=== PATIENT | male | born 1945 | race Caucasian/White ===

== ENCOUNTER 2018-04-13 09:03 | Day surgery (SDC) | payer MEDICARE ==
[2018-04-13] VITALS (11 sets, daily range): BP systolic 101–168; BP diastolic 49–91
[~2018-04-13] VITALS: Ht 172.7 cm; Wt 120.0 kg
[2018-04-13] MEDS ORDERED: LORazepam 0.5 MG tablet PO PRN (09:55)
[2018-04-13] MEDS ORDERED: diphenhydrAMINE 25mg capsule PO PRN (09:55)
[2018-04-13] MEDS ORDERED: normal saline 1000ml 1,000 ML IV SCH (09:55)
[2018-04-13] MEDS ORDERED: nitroGLYCERIN 0.4mg SUBLingual tab SL PRN (09:55)
[2018-04-13 10:06] LABS: BASOPHILS % (AUTO) 0.5 % (0-1); EOSINOPHILS # (AUTO) 0.1 X10'3 (0-0.9); EOSINOPHILS % (AUTO) 0.9 % (0-6); HEMATOCRIT 45.3 % (42.0-52.0); HEMOGLOBIN 15.4 g/dl (14.0-17.9); LYMPHOCYTES # (AUTO) 1.3 X10'3 (1.1-4.8); LYMPHOCYTES % (AUTO) 16.6 % (21-51); MEAN CORPUSCULAR HEMOGLOBIN 31.8 PG (27.0-31.0); MEAN CORPUSCULAR HGB CONC 34.1 % (33.0-36.5); MEAN CORPUSCULAR VOLUME 93.3 FL (78-98); MEAN PLATELET VOLUME 9.8 FL (7.4-10.4); MONOCYTES # (AUTO) 0.8 X10'3 (0-0.9); MONOCYTES % (AUTO) 9.7 % (2-12); NEUTROPHILS # (AUTO) 5.9 X10'3 (1.8-7.7); NEUTROPHILS % (AUTO) 72.3 % (42-75); PLATELET COUNT 228 X10'3 (140-440); RED BLOOD COUNT 4.85 X10'6 (4.70-6.10); RED CELL DISTRIBUTION WIDTH 14.1 % (11.5-14.5); WHITE BLOOD COUNT 8.1 X10'3 (4.5-11.0)
[2018-04-13 10:19] LABS: PARTIAL THROMBOPLASTIN TIME 27 SECONDS (22-32); PROTHROMBIN TIME 10.3 SECONDS (9.0-12.0)
[2018-04-13 10:22] LABS: ALBUMIN 4.3 G/DL (3.4-5.0); ANION GAP 11 (8-16); BLOOD UREA NITROGEN 18 MG/DL (7-18); BUN/CREATININE RATIO 13.2 (5.4-32.0); CALCIUM 9.4 MG/DL (8.5-10.1); CHLORIDE 105 MMOL/L (99-107); CREATININE 1.36 MG/DL (0.60-1.10); GLUCOSE 101 MG/DL (70-104); POTASSIUM 3.5 MMOL/L (3.5-5.1); SODIUM 142 MMOL/L (135-145); eGFR 51 ML/MIN
[2018-04-13] MEDS ORDERED: LOSA25TA96 PO (10:50)
[2018-04-13] MEDS ORDERED: SIMV20TA5 PO (10:50)
[2018-04-13] MEDS ORDERED: CITA-278 PO (10:50)
[2018-04-13] MEDS ORDERED: ALLO100T PO (10:50)
[2018-04-13] MEDS ORDERED: iohexol 350MG/ML 100ml bottle IV ONE (11:34)
[2018-04-13] MEDS ORDERED: LIDOcaine 1% (10mg/ml)w/preservative injection 20ml MDV ONE (11:34)
[2018-04-13] MEDS ORDERED: iohexol 350 MG/ML 50ML vial IV ONE (11:34)
[2018-04-13] MEDS ORDERED: midazolam 2 mg/2 ml injection ONE (11:55)
[2018-04-13] MEDS ORDERED: fentaNYL/PF 50MCG/1 ML 2ML syringe ONE (11:56)
[2018-04-13] MEDS ORDERED: proCHLORperazine 10 MG/2 ml inj ONE (12:06)
[2018-04-13] MEDS ORDERED: HYDROcodone/acetaminophen 5mg/325mg tablet PO PRN (13:05)
[2018-04-13] MEDS ORDERED: proCHLORperazine 10 MG/2 ml inj IV PRN (13:05)
[2018-04-13] MEDS ORDERED: ondansetron/PF 4mg/2ml inj IV PRN (13:05)
[2018-04-13] MEDS ORDERED: HYDROcodone/acetaminophen 10/325mg tab PO PRN (13:05)
[2018-04-13] MEDS ORDERED: OXAZEpam 15mg capsule PO PRN (13:05)
== END 2018-04-13 19:00 | disposition home or self-care (01) ==
LOC: SSTAY O 09:03
PROVIDERS: ATTEND Internal Medicine Cardiovascular Disease
DX: I25.10 Atherosclerotic heart disease of native coronary artery without angina pectoris (principal); I10 Essential (primary) hypertension; M10.9 Gout, unspecified; E78.5 Hyperlipidemia, unspecified; E66.9 Obesity, unspecified; F10.10 Alcohol abuse, uncomplicated; F41.8 Other specified anxiety disorders; Z68.41 Body mass index [BMI] 40.0-44.9, adult; Z72.89 Other problems related to lifestyle; Z90.49 Acquired absence of other specified parts of digestive tract; Z90.89 Acquired absence of other organs; Z79.899 Other long term (current) drug therapy
CPT/HCPCS: 36415; 71046; 80048; 85025; 85610; 85730; 93458; 99152; A6257; C1760; J0780; J1644; J2001; J2250; J3010; J7030; Q0163; Q9967; 99153; A4620; C1769

== ENCOUNTER 2018-04-27 08:48 | Inpatient (IN) | payer MEDICARE ==
[2018-04-26 14:20] LABS: ABG BASE EXCESS -3.5 mmol/L (-2.0-3.0); ABG HCO3 19.7 mmol/L (22.0-26.0); ABG OXYGEN SATURATION 96.8 % (95-98); ABG PCO2 (T) 31.2 mmHg (35.0-48.0); ABG PH (T) 7.419 (7.350-7.450); ABG PO2 (T) 91.5 mmHg (83-108); ALLEN'S TEST Positive; FCOHb 0.9 % (0.5-1.5); FMetHb 0.1 % (0.3-1.12); FO2Hb 95.8 % (94-100); TOTAL HEMOGLOBIN 15.2 G/dl (14.0-18.0)
[2018-04-26 15:03] LABS: BASOPHILS % (AUTO) 0.6 % (0-1); EOSINOPHILS # (AUTO) 0.2 X10'3 (0-0.9); EOSINOPHILS % (AUTO) 2.2 % (0-6); LYMPHOCYTES # (AUTO) 1.4 X10'3 (1.1-4.8); LYMPHOCYTES % (AUTO) 17.7 % (21-51); MEAN CORPUSCULAR HEMOGLOBIN 31.1 PG (27.0-31.0); MEAN CORPUSCULAR HGB CONC 33.4 g/dL (33.0-36.5); MEAN CORPUSCULAR VOLUME 93.1 FL (78-98); MEAN PLATELET VOLUME 9.7 FL (7.4-10.4); MONOCYTES # (AUTO) 0.7 X10'3 (0-0.9); MONOCYTES % (AUTO) 8.3 % (2-12); NEUTROPHILS # (AUTO) 5.6 X10'3 (1.8-7.7); NEUTROPHILS % (AUTO) 71.2 % (42-75); PRE OP HEMATOCRIT 43.7 % (42.0-52.0); PRE OP HEMOGLOBIN 14.6 g/dL (14.0-17.9); PRE OP PLATELET COUNT 247 X10'3 (140-440); RED CELL DISTRIBUTION WIDTH 13.9 % (11.5-14.5)
[2018-04-26 15:19] LABS: CLARITY,URINE CLEAR (Clear); COLOR,URINE YELLOW (Yellow); GLUCOSE, URINE NEGATIVE (Neg); KETONES,URINE NEGATIVE (Neg); LEUKOCYTE ESTERASE ,URINE NEGATIVE (Neg); NITRITES, URINE NEGATIVE (Neg); OCCULT BLOOD,URINE NEGATIVE (Neg); PH,URINE 5.5 (4.8-8.0); PROTEIN,URINE NEGATIVE (Neg); UA COLLECTION TYPE VOIDED; UROBILINOGEN,URINE 0.2 E.U/dL (0.2-1.0)
[2018-04-26 15:20] LABS: ALBUMIN 4.3 G/DL (3.4-5.0); ALBUMIN/GLOBULIN RATIO 1.2 (1.1-1.5); ALKALINE PHOSPHATASE 60 IU/L (46-116); BLOOD UREA NITROGEN 19 MG/DL (7-18); BUN/CREATININE RATIO 15.7 (5.4-32.0); CALCIUM 9.5 MG/DL (8.5-10.1); CHLORIDE 103 MMOL/L (99-107); CREATININE 1.21 MG/DL (0.60-1.10); PRE OP ALT 34 U/L (30-65); PRE OP ANION GAP 10 (8-16); PRE OP AST 24 U/L (10-37); PRE OP BILIRUB, TOTAL 0.6 MG/DL (0.0-1.0); PRE OP GLUCOSE 96 MG/DL (70-104); PRE OP POTASSIUM 3.5 MMOL/L (3.4-5.1); PRE OP SODIUM 141 MMOL/L (135-145); TOTAL CARBON DIOXIDE 27.8 MMOL/L (24-32); TOTAL PROTEIN 7.8 G/DL (6.4-8.2); eGFR 59 ML/MIN
[~2018-04-27] VITALS: Ht 172.7 cm; Wt 127.6 kg
[2018-04-27] VITALS (13 sets, daily range): BP systolic 107–159; BP diastolic 48–76
[2018-04-27] MEDS: mupirocin 2% nasal ointment 1gm UD NS SCH ×3 (08:00→20:16)
[~2018-04-27 08:48] MED LIST: ALLO100T PO; CITA-278 PO; LORazepam 2 mg/ml vial IV PRN; LOSA1TAB36 PO; SIMV20TA5 PO; ceFAZolin inj. 2,000 MG in dextrose 5%-water 50ml 50 ML IV ONE; dextrose 50%-water 50ml dispensing syringe IV PRN; famotidine 20mg tablet PO ONE; insulin Lispro (HumaLOG) vial - multi-dose SQ PRN; metoprolol tartrate 12.5mg (1/2 tablet) PO ONE; ringers solution, lacted 1,000 ML IV SCH; vancomycin inj 1,500 MG in normal saline 300ml IV soln IV ONE
[2018-04-27] MEDS ORDERED: ceFAZolin inj. 3,000 MG in normal saline 100ml IV soln 100 ML IV ONE (09:36)
[2018-04-27] MEDS ORDERED: heparin 10,000 units/1 ML INJ ONE ×2 (12:00→14:00)
[2018-04-27] MEDS ORDERED: potassium Cl 2 mEq/ml inj IV ONE (12:00)
[2018-04-27] MEDS ORDERED: MAGNESIUM SULFATE 4 MEQ/ML (5gm/10ml) injection ONE (12:00)
[2018-04-27] MEDS ORDERED: calcium chloride 100 MG/1 ML inj IV ONE (12:00)
[2018-04-27] MEDS ORDERED: phenylephrine 10mg/ml inj. ONE ×2 (12:00→17:01)
[2018-04-27] MEDS ORDERED: albumin (human) 25% 100 ML IV solution IV ONE (12:00)
[2018-04-27] MEDS ORDERED: LIDOcaine 2% (20 mg/ml) 5ml cardiac syringe ONE (12:00)
[2018-04-27] MEDS ORDERED: aminocaproic acid 250 MG/1 ML inj. ONE (12:00)
[2018-04-27] MEDS ORDERED: sodium bicarbonate (8.4%) 1 mEq/ml syringe ONE (12:00)
[2018-04-27] MEDS ORDERED: heparin 1,000 units/ml 10ml inj ONE (12:00)
[2018-04-27] MEDS ORDERED: MIDAZolam 1mg/ml 10ml vial ONE (12:18)
[2018-04-27] MEDS ORDERED: SUFENTANIL CITRATE 50 MCG/ML 2ml ampule IV ONE ×2 (12:19→13:59)
[2018-04-27] MEDS ORDERED: DOPamine/D5W 400mg/250ml bag IV ONE (12:21)
[2018-04-27] MEDS ORDERED: isoflurane 100ml inhalation liquid IH ONE (12:21)
[2018-04-27] MEDS ORDERED: nitroGLYCERIN in D5W 50mg/250ml (Tridil) infusion IV ONE (12:21)
[2018-04-27] MEDS ORDERED: glycopyrrolate 0.2mg/ml inj ONE (12:21)
[2018-04-27 13:11] LABS: ABG HCO3 23.2 mmol/L (22.0-26.0); ABG OXYGEN SATURATION 99.3 % (95-98); ABG PCO2 37.3 mmHg (35.0-45.0); ABG PH 7.412 (7.350-7.450); ABG PO2 408.9 mmHg (60.0-100.0); CL (ABG) 108 mmol/L (99-107); FCOHb 0.5 % (0.5-1.5); FMetHb 0.3 % (0.3-1.12); FO2Hb 98.5 % (94-100); GLUCOSE (ABG) 109 mg/dl (70-105); IONIZED CA (ABG) 1.16 mmol/L (1.03-1.32); K (ABG) 3.5 mmol/L (3.3-5.1); NA (ABG) 138 mmol/L (135-145); TOTAL HEMOGLOBIN 13.3 G/dl (14.0-18.0)
[2018-04-27 13:31] LABS: ACT @ 1.70 U 316 SEC (193-297); ACT @ 2.84 U 435 SEC (260-420); BASELINE ACT 154 SEC (101-148)
[2018-04-27] MEDS ORDERED: papaverine 30 mg/ml 2ml inj. ONE (14:00)
[2018-04-27 14:31] LABS: ABG BASE EXCESS -2.9 mmol/L (-2.0-3.0); ABG HCO3 21.2 mmol/L (22.0-26.0); ABG OXYGEN SATURATION 98.9 % (95-98); ABG PH 7.412 (7.350-7.450); ABG PO2 344.5 mmHg (60.0-100.0); CL (ABG) 105 mmol/L (99-107); FCOHb 0.1 % (0.5-1.5); FMetHb 0.3 % (0.3-1.12); FO2Hb 98.5 % (94-100); GLUCOSE (ABG) 118 mg/dl (70-105); IONIZED CA (ABG) 1.03 mmol/L (1.03-1.32); K (ABG) 4.8 mmol/L (3.3-5.1); NA (ABG) 133 mmol/L (135-145); TOTAL HEMOGLOBIN 10.2 G/dl (14.0-18.0)
[2018-04-27] MEDS ORDERED: ipratropium/albuterol 3ml nebule IH PRN (14:40)
[2018-04-27 14:51] LABS: ABG HCO3 VENOUS 26.5 mmol/L; ABG PCO2 VENOUS 45.9 mmHg; ABG PO2 VENOUS 49.1 mmHg; CL (ABG) 104 mmol/L (99-107); FCOHb VENOUS 0.4 %; FHHb VENOUS 15.1 %; FMetHb VENOUS 0.3 %; FO2Hb VENOUS 84.2 %; GLUCOSE (ABG) 121 mg/dl (70-105); IONIZED CA (ABG) 1.04 mmol/L (1.03-1.32); K (ABG) 4.6 mmol/L (3.3-5.1); NA (ABG) 137 mmol/L (135-145); TOTAL HEMOGLOBIN 10.3 G/dl (14.0-18.0)
[2018-04-27 15:16] LABS: ABG BASE EXCESS 2.1 mmol/L (-2.0-3.0); ABG HCO3 26.8 mmol/L (22.0-26.0); ABG OXYGEN SATURATION 98.9 % (95-98); ABG PCO2 42.7 mmHg (35.0-45.0); ABG PH 7.416 (7.350-7.450); ABG PO2 366.2 mmHg (60.0-100.0); CL (ABG) 103 mmol/L (99-107); FCOHb 0.3 % (0.5-1.5); FMetHb 0.3 % (0.3-1.12); FO2Hb 98.3 % (94-100); GLUCOSE (ABG) 113 mg/dl (70-105); IONIZED CA (ABG) 1.32 mmol/L (1.03-1.32); K (ABG) 4.5 mmol/L (3.3-5.1); NA (ABG) 133 mmol/L (135-145); TOTAL HEMOGLOBIN 9.5 G/dl (14.0-18.0)
[2018-04-27 15:45] LABS: ABG BASE EXCESS VENOUS 1.1 mmol/L; ABG PO2 VENOUS 45.4 mmHg; CL (ABG) 103 mmol/L (99-107); FCOHb VENOUS 0.4 %; FHHb VENOUS 18.4 %; FMetHb VENOUS 0.4 %; FO2Hb VENOUS 80.8 %; GLUCOSE (ABG) 123 mg/dl (70-105); IONIZED CA (ABG) 1.19 mmol/L (1.03-1.32); K (ABG) 4.5 mmol/L (3.3-5.1); NA (ABG) 135 mmol/L (135-145); TOTAL HEMOGLOBIN 10.5 G/dl (14.0-18.0)
[2018-04-27] MEDS ORDERED: nitroGLYCERIN-Tridil 50MG/D5W 250 ML IV PRN (16:29)
[2018-04-27] MEDS ORDERED: sodium chloride 0.45% 1,000 ML IV SCH (16:29)
[2018-04-27] MEDS ORDERED: DOPamine 400mg/D5W 250ml 250 ML IV PRN (16:29)
[2018-04-27] MEDS ORDERED: niCARDipine-NS 40mg/200ml IVPB 200 ML IV PRN (16:29)
[2018-04-27] MEDS ORDERED: Neutra Phos packet PO PRN (16:30)
[2018-04-27] MEDS ORDERED: normal saline 250ml IV soln 250 ML IV PRN (16:30)
[2018-04-27] MEDS ORDERED: dextrose 50%-water 50ml dispensing syringe IV PRN (16:30)
[2018-04-27] MEDS ORDERED: sodium phosphate inj. 30 MMOL in dextrose 5%-water 250 ML IV PRN (16:30)
[2018-04-27] MEDS ORDERED: magnesium hydroxide 30ml (MOM) UD suspension PO PRN (16:30)
[2018-04-27] MEDS ORDERED: acetaminophen 325mg tablet PO PRN (16:30)
[2018-04-27] MEDS ORDERED: metoclopramide 5 mg/ml inj IV PRN (16:30)
[2018-04-27] MEDS ORDERED: albumin (Human) 5% 250ml 250 ML IV PRN (16:30)
[2018-04-27] MEDS ORDERED: magnesium 4gm in 100ml NS 100 ML IV PRN (16:30)
[2018-04-27] MEDS ORDERED: potassium Cl 20mEq/100mL bag 100 ML IV PRN (16:30)
[2018-04-27] MEDS ORDERED: magnesium 2GM in 50ml NS 50 ML IV PRN (16:30)
[2018-04-27] MEDS ORDERED: sodium phosphate inj. 15 MMOL in dextrose 5%-water 150 ML IV PRN (16:30)
[2018-04-27] MEDS ORDERED: ondansetron/PF 4mg/2ml inj IV PRN (16:30)
[2018-04-27] MEDS ORDERED: insulin regular, human inj. 100 UNITS in normal saline 100ml IV soln 100 ML IV SCH ×2 (16:30)
[2018-04-27] MEDS ORDERED: HYDROcodone/acetaminophen 10/325mg tab PO PRN (16:30)
[2018-04-27] MEDS ORDERED: morphine 4 MG/ML inj SYRINge IV PRN (16:30)
[2018-04-27] MEDS ORDERED: pantoprazole 40 MG vial IV ONE (16:30)
[2018-04-27] MEDS ORDERED: niCARDipine-NS 40mg/200ml IVPB 200 ML IV ONE (16:43)
--- NOTE | 2018-04-27 16:45 | NUR ---
Received to room 2012, accompanied by MDs and surgical crew. Placed on ventilator, to clinical research monitor, arterial line and PA line pressure monitored. Chest tubes to suction at 20 cm. Burnham cath to gravity drainage. Dressings are dry and intact. See assessment record. All vasoactive drugs are infusing via central line.
[2018-04-27] MEDS ORDERED: rocuronium 10mg/ml inj IV ONE (17:01)
[2018-04-27] MEDS ORDERED: propofol inj 20 ML IV ONE (17:01)
[2018-04-27] MEDS ORDERED: LIDOcaine 2% (20mg/ml) 5ml vial ONE (17:01)
[2018-04-27] MEDS ORDERED: etomidate 2mg/ml inj. ONE (17:01)
[2018-04-27 17:06] LABS: ABG BASE EXCESS -1.8 mmol/L (-2.0-3.0); ABG HCO3 24.4 mmol/L (22.0-26.0); ABG OXYGEN SATURATION 97.8 % (95-98); ABG PCO2 (T) 44.4 mmHg (35.0-48.0); ABG PH (T) 7.352 (7.350-7.450); FCOHb 0.5 % (0.5-1.5); FMetHb 0.4 % (0.3-1.12); FO2Hb 96.9 % (94-100); MINUTE VOLUME 8 L/min; PATIENT TEMPERATURE 35.9; PEEP 5 cm H2O; RESPIRATORY RATE 12 b/min; RESPIRATORY RATE (OBSERVED) 12 b/min; TIDAL VOLUME 650 mL; TOTAL HEMOGLOBIN 13.6 G/dl (14.0-18.0)
[2018-04-27 17:13] LABS: BASOPHILS % (AUTO) 0.3 % (0-1); EOSINOPHILS # (AUTO) 0.1 X10'3 (0-0.9); EOSINOPHILS % (AUTO) 1.1 % (0-6); HEMATOCRIT 37.6 % (42.0-52.0); HEMOGLOBIN 12.8 g/dl (14.0-17.9); LYMPHOCYTES # (AUTO) 0.7 X10'3 (1.1-4.8); LYMPHOCYTES % (AUTO) 5.6 % (21-51); MEAN CORPUSCULAR HEMOGLOBIN 31.7 PG (27.0-31.0); MEAN CORPUSCULAR VOLUME 93.2 FL (78-98); MEAN PLATELET VOLUME 9.3 FL (7.4-10.4); MONOCYTES # (AUTO) 0.6 X10'3 (0-0.9); MONOCYTES % (AUTO) 4.9 % (2-12); NEUTROPHILS # (AUTO) 10.7 X10'3 (1.8-7.7); NEUTROPHILS % (AUTO) 88.1 % (42-75); PLATELET COUNT 183 X10'3 (140-440); RED BLOOD COUNT 4.03 X10'6 (4.70-6.10); RED CELL DISTRIBUTION WIDTH 13.7 % (11.5-14.5); WHITE BLOOD COUNT 12.2 X10'3 (4.5-11.0)
[2018-04-27 17:30] LABS: ALANINE AMINOTRANSFERASE 27 U/L (12-78); ALBUMIN 3.8 G/DL (3.4-5.0); ALBUMIN/GLOBULIN RATIO 1.6 (1.1-1.5); ALKALINE PHOSPHATASE 43 IU/L (46-116); ANION GAP 9 (8-16); ASPARTATE AMINO TRANSFERASE 33 U/L (10-37); BILIRUBIN,TOTAL 1.2 MG/DL (0.1-1.0); BLOOD UREA NITROGEN 16 MG/DL (7-18); BUN/CREATININE RATIO 13.4 (5.4-32.0); CALCIUM 9.1 MG/DL (8.5-10.1); CHLORIDE 105 MMOL/L (99-107); CREATININE 1.19 MG/DL (0.60-1.10); GLUCOSE 147 MG/DL (70-104); MAGNESIUM 3.1 MG/DL (1.5-2.4); PHOSPHORUS 2.6 MG/DL (2.3-4.5); POTASSIUM 4.2 MMOL/L (3.5-5.1); SODIUM 141 MMOL/L (135-145); TOTAL CARBON DIOXIDE 27.3 MMOL/L (24-32); TOTAL PROTEIN 6.2 G/DL (6.4-8.2); eGFR 60 ML/MIN
[2018-04-27] MEDS: insulin regular, human inj. 100 UNITS in normal saline 100ml IV IV SCH ×2 (17:37)
[2018-04-27 17:55] LABS: INR 1.1 INR; PARTIAL THROMBOPLASTIN TIME 29 SECONDS (22-32); PROTHROMBIN TIME 11.5 SECONDS (9.0-12.0)
[2018-04-27] MEDS ORDERED: insulin Lispro (HumaLOG) vial - multi-dose SQ SCH (18:00)
[2018-04-27] MEDS: morphine 4 MG/ML inj SYRINge IV PRN ×2 (18:02→20:20)
--- NOTE | 2018-04-27 18:15 | NUR ---
Problems reprioritized. Patient report given, questions answered & plan of care reviewed with oncoming shift.
--- NOTE | 2018-04-27 18:30 | NUR ---
Patient in room CICU 2011. I have received report from Micaela BOWENS and had the opportunity to ask questions and assume patient care.
[2018-04-27] MEDS: niCARDipine-NS 40mg/200ml IVPB 200 ML IV SCH (18:45)
[2018-04-27] MEDS: potassium Cl 20mEq/100mL bag 100 ML IV PRN ×2 (18:53→23:51)
[2018-04-27] MEDS ORDERED: mupirocin 2% ointment 22GM NS SCH (20:00)
[2018-04-27] MEDS: docusate sod 100mg capsule PO SCH (20:00)
[2018-04-27] MEDS: vancomycin/NS 1 GM ADD-VANTAGE 250 ML IV SCH (20:17)
[2018-04-27 22:40] LABS: BASOPHILS % (AUTO) 0 % (0-1); EOSINOPHILS # (AUTO) 0.2 X10'3 (0-0.9); EOSINOPHILS % (AUTO) 1.4 % (0-6); HEMATOCRIT 36.9 % (42.0-52.0); HEMOGLOBIN 12.7 g/dl (14.0-17.9); LYMPHOCYTES # (AUTO) 0.5 X10'3 (1.1-4.8); LYMPHOCYTES % (AUTO) 3.3 % (21-51); MEAN CORPUSCULAR HEMOGLOBIN 32.2 PG (27.0-31.0); MEAN CORPUSCULAR HGB CONC 34.3 g/dL (33.0-36.5); MEAN CORPUSCULAR VOLUME 93.8 FL (78-98); MEAN PLATELET VOLUME 9.3 FL (7.4-10.4); MONOCYTES # (AUTO) 0.7 X10'3 (0-0.9); MONOCYTES % (AUTO) 4.5 % (2-12); NEUTROPHILS # (AUTO) 13.9 X10'3 (1.8-7.7); NEUTROPHILS % (AUTO) 90.8 % (42-75); PLATELET COUNT 174 X10'3 (140-440); RED BLOOD COUNT 3.93 X10'6 (4.70-6.10); RED CELL DISTRIBUTION WIDTH 14.2 % (11.5-14.5); WHITE BLOOD COUNT 15.3 X10'3 (4.5-11.0)
[2018-04-27 22:48] LABS: ALBUMIN 3.7 G/DL (3.4-5.0); ANION GAP 16 (8-16); BLOOD UREA NITROGEN 20 MG/DL (7-18); BUN/CREATININE RATIO 11.3 (5.4-32.0); CALCIUM 8.6 MG/DL (8.5-10.1); CHLORIDE 105 MMOL/L (99-107); CREATININE 1.77 MG/DL (0.60-1.10); GLUCOSE 168 MG/DL (70-104); MAGNESIUM 2.6 MG/DL (1.5-2.4); PHOSPHORUS 2.7 MG/DL (2.3-4.5); POTASSIUM 3.2 MMOL/L (3.5-5.1); SODIUM 143 MMOL/L (135-145); TOTAL CARBON DIOXIDE 21.8 MMOL/L (24-32); eGFR 38 ML/MIN
[2018-04-27] MEDS: ceFAZolin 1GM/D5W- ADD-VANTAGE 50 ML IV SCH (23:51)
[2018-04-28] VITALS (24 sets, daily range): BP systolic 100–144; BP diastolic 42–66
[2018-04-28 00:36] LABS: ABG HCO3 18.8 mmol/L (22.0-26.0); ABG OXYGEN SATURATION 96.3 % (95-98); ABG PCO2 (T) 34.8 mmHg (35.0-48.0); ABG PO2 (T) 92.2 mmHg (83-108); FCOHb 0.3 % (0.5-1.5); FMetHb 0.3 % (0.3-1.12); FO2Hb 95.7 % (94-100); PATIENT TEMPERATURE 36.8; PEEP 5 cm H2O; RESPIRATORY RATE (OBSERVED) 15 b/min
--- NOTE | 2018-04-28 00:51 | NUR ---
Extubated 0045 to 4L NC.
[2018-04-28] MEDS: niCARDipine-NS 40mg/200ml IVPB 200 ML IV SCH ×3 (00:53→18:45)
[2018-04-28] MEDS: potassium Cl 20mEq/100mL bag 100 ML IV PRN ×3 (00:53→02:56)
[2018-04-28] MEDS: HYDROcodone/acetaminophen 10/325mg tab PO PRN ×4 (04:42→16:43)
[2018-04-28 04:45] LABS: BASOPHILS % (AUTO) 0 % (0-1); EOSINOPHILS % (AUTO) 0 % (0-6); HEMATOCRIT 36.3 % (42.0-52.0); HEMOGLOBIN 12.2 g/dl (14.0-17.9); LYMPHOCYTES # (AUTO) 0.5 X10'3 (1.1-4.8); LYMPHOCYTES % (AUTO) 3.3 % (21-51); MEAN CORPUSCULAR HEMOGLOBIN 31.4 PG (27.0-31.0); MEAN CORPUSCULAR HGB CONC 33.6 g/dL (33.0-36.5); MEAN CORPUSCULAR VOLUME 93.3 FL (78-98); MEAN PLATELET VOLUME 9.6 FL (7.4-10.4); MONOCYTES % (AUTO) 6.3 % (2-12); NEUTROPHILS % (AUTO) 90.4 % (42-75); PLATELET COUNT 163 X10'3 (140-440); RED BLOOD COUNT 3.89 X10'6 (4.70-6.10); RED CELL DISTRIBUTION WIDTH 13.9 % (11.5-14.5); WHITE BLOOD COUNT 15.5 X10'3 (4.5-11.0)
[2018-04-28 05:00] LABS: ALANINE AMINOTRANSFERASE 24 U/L (12-78); ALBUMIN 3.5 G/DL (3.4-5.0); ALBUMIN/GLOBULIN RATIO 1.4 (1.1-1.5); ALKALINE PHOSPHATASE 38 IU/L (46-116); ANION GAP 13 (8-16); ASPARTATE AMINO TRANSFERASE 38 U/L (10-37); BILIRUBIN,TOTAL 0.6 MG/DL (0.1-1.0); BLOOD UREA NITROGEN 21 MG/DL (7-18); BUN/CREATININE RATIO 13.4 (5.4-32.0); CHLORIDE 109 MMOL/L (99-107); CREATININE 1.57 MG/DL (0.60-1.10); GLUCOSE 127 MG/DL (70-104); MAGNESIUM 2.6 MG/DL (1.5-2.4); POTASSIUM 4.6 MMOL/L (3.5-5.1); SODIUM 145 MMOL/L (135-145); TOTAL CARBON DIOXIDE 22.7 MMOL/L (24-32); eGFR 44 ML/MIN
[2018-04-28 05:01] LABS: INR 1.1 INR; PARTIAL THROMBOPLASTIN TIME 23 SECONDS (22-32); PROTHROMBIN TIME 10.7 SECONDS (9.0-12.0)
[2018-04-28 05:21] LABS: ACTIVATED CLOTTING TIME 105 SEC (101-148)
--- NOTE | 2018-04-28 06:10 | NUR ---
Problems reprioritized. Patient report given, questions answered & plan of care reviewed with Oncoming shift RN.
[2018-04-28] MEDS: citalopram 20mg tablet PO SCH (08:09)
[2018-04-28] MEDS: aspirin 325mg tablet, delayed-release (Ecotrin) PO SCH (08:09)
[2018-04-28] MEDS: metoprolol tartrate 12.5mg (1/2 tablet) PO SCH ×2 (08:11→20:00)
[2018-04-28] MEDS: atorvastatin 10mg tablet PO SCH (08:11)
[2018-04-28] MEDS: allopurinol 100mg tablet PO SCH (08:11)
[2018-04-28] MEDS: docusate sod 100mg capsule PO SCH ×2 (08:11→20:34)
[2018-04-28] MEDS: mupirocin 2% nasal ointment 1gm UD NS SCH ×2 (08:13→20:34)
[2018-04-28] MEDS: ceFAZolin 1GM/D5W- ADD-VANTAGE 50 ML IV SCH ×2 (08:13→16:43)
[2018-04-28] MEDS: vancomycin/NS 1 GM ADD-VANTAGE 250 ML IV SCH ×2 (08:43→20:34)
[2018-04-28] MEDS: insulin regular, human inj. 100 UNITS in normal saline 100ml IV IV SCH ×2 (14:15)
[2018-04-28] MEDS ORDERED: IBUP-1984 PO (14:29)
[2018-04-28] MEDS ORDERED: glucagon, human recombinant 1mg kit SUBCUT PRN (18:10)
[2018-04-28] MEDS ORDERED: dextrose 50%-water 50ml dispensing syringe IV PRN ×2 (18:10)
[2018-04-28] MEDS ORDERED: MESSAGE TO PHARMACY PO ONE (18:10)
[2018-04-28] MEDS ORDERED: dextrose ORAL solution 15 GM/59 ML bottle PO PRN ×2 (18:10)
--- NOTE | 2018-04-28 18:30 | NUR ---
Patient in room CICU 2011. I have received report from Lul BOWENS and had the opportunity to ask questions and assume patient care.
[2018-04-28] MEDS: lactobacillus rhamnosus 10,000 MMU CELLS/CAPSULE PO SCH (20:34)
[2018-04-28] MEDS: insulin glargine (Lantus) pen - multi-dose SQ SCH (20:46)
[2018-04-28] MEDS: insulin Lispro (HumaLOG) vial - multi-dose SQ SCH (20:47)
[2018-04-29] VITALS (18 sets, daily range): BP systolic 129–163; BP diastolic 61–86
[2018-04-29] MEDS: ceFAZolin 1GM/D5W- ADD-VANTAGE 50 ML IV SCH ×2 (00:54→07:11)
[2018-04-29 02:04] LABS: ALBUMIN 3.5 G/DL (3.4-5.0); ANION GAP 8 (8-16); BLOOD UREA NITROGEN 29 MG/DL (7-18); BUN/CREATININE RATIO 20.7 (5.4-32.0); CALCIUM 8.6 MG/DL (8.5-10.1); CHLORIDE 105 MMOL/L (99-107); GLUCOSE 160 MG/DL (70-104); MAGNESIUM 2.4 MG/DL (1.5-2.4); PHOSPHORUS 3.2 MG/DL (2.3-4.5); POTASSIUM 4.3 MMOL/L (3.5-5.1); SODIUM 139 MMOL/L (135-145); TOTAL CARBON DIOXIDE 26.5 MMOL/L (24-32); eGFR 50 ML/MIN
[2018-04-29 02:11] LABS: BASOPHILS % (AUTO) 0 % (0-1); EOSINOPHILS % (AUTO) 0 % (0-6); HEMATOCRIT 33.9 % (42.0-52.0); HEMOGLOBIN 11.6 g/dl (14.0-17.9); LYMPHOCYTES # (AUTO) 0.6 X10'3 (1.1-4.8); LYMPHOCYTES % (AUTO) 2.8 % (21-51); MEAN CORPUSCULAR HEMOGLOBIN 32.2 PG (27.0-31.0); MEAN CORPUSCULAR HGB CONC 34.3 g/dL (33.0-36.5); MEAN CORPUSCULAR VOLUME 93.9 FL (78-98); MEAN PLATELET VOLUME 10.6 FL (7.4-10.4); MONOCYTES # (AUTO) 1.6 X10'3 (0-0.9); NEUTROPHILS # (AUTO) 20.1 X10'3 (1.8-7.7); NEUTROPHILS % (AUTO) 90.2 % (42-75); PLATELET COUNT 147 X10'3 (140-440); RED BLOOD COUNT 3.61 X10'6 (4.70-6.10); RED CELL DISTRIBUTION WIDTH 14.6 % (11.5-14.5); WHITE BLOOD COUNT 22.3 X10'3 (4.5-11.0)
[2018-04-29] MEDS: niCARDipine-NS 40mg/200ml IVPB 200 ML IV SCH (02:45)
--- NOTE | 2018-04-29 06:27 | NUR ---
Problems reprioritized. Patient report given, questions answered & plan of care reviewed with Lul BOWENS.
[2018-04-29] MEDS: docusate sod 100mg capsule PO SCH ×2 (07:11→20:39)
[2018-04-29] MEDS: lactobacillus rhamnosus 10,000 MMU CELLS/CAPSULE PO SCH ×2 (07:11→20:39)
[2018-04-29] MEDS: pantoprazole 40mg Tablet.DR PO SCH (07:11)
[2018-04-29] MEDS: aspirin 325mg tablet, delayed-release (Ecotrin) PO SCH (07:11)
[2018-04-29] MEDS: mupirocin 2% nasal ointment 1gm UD NS SCH (07:11)
[2018-04-29] MEDS: citalopram 20mg tablet PO SCH (07:11)
[2018-04-29] MEDS: allopurinol 100mg tablet PO SCH (07:11)
[2018-04-29] MEDS: atorvastatin 10mg tablet PO SCH (07:11)
[2018-04-29] MEDS: insulin Lispro (HumaLOG) vial - multi-dose SQ SCH ×2 (09:24→19:01)
[2018-04-29] MEDS: potassium Cl 20mEq/100mL bag 100 ML IV PRN (10:03)
[2018-04-29] MEDS ORDERED: magnesium 2GM in 50ml NS 50 ML IV PRN (10:40)
[2018-04-29] MEDS ORDERED: magnesium 4gm in 100ml NS 100 ML IV PRN (10:40)
[2018-04-29] MEDS ORDERED: potassium Cl 40MEQ/NS 500ml 500 ML IV PRN ×2 (10:40)
[2018-04-29] MEDS ORDERED: potassium Cl 20 mEq SR tablet PO PRN ×2 (10:40)
[2018-04-29] MEDS ORDERED: magnesium Cl slow-release 64mg tablet PO PRN (10:40)
--- NOTE | 2018-04-29 11:00 | NUR ---
Dr Smiley and Liborio at bedside. chest tubes removed; patient tolerated well. orders received
--- NOTE | 2018-04-29 11:30 | NUR ---
Central line and khan catheter removed per protocol. patient tolerated well
[2018-04-29] MEDS: losartan 50mg tablet PO SCH (12:49)
[2018-04-29] MEDS: HYDROcodone/acetaminophen 10/325mg tab PO PRN ×2 (12:49→17:56)
--- NOTE | 2018-04-29 12:56 | NUR ---
Blood sugar checked; 106. Rejected on the glucometer on accident
--- NOTE | 2018-04-29 15:41 | NUR ---
report called to [facility]
--- NOTE | 2018-04-29 15:45 | NUR ---
Patient in room MED 308. I have received report from KWAN COTTRELL CICU and had the opportunity to ask questions and assume patient care.
--- NOTE | 2018-04-29 16:00 | NUR ---
PATIENT ARRIVED TO [facility] VIA WC IN STABLE CONDITION. KWAN COTTRELL ACCOMPANIED PATIENT. ALL BELONGINGS WITH PATIENT AND IN ROOM. PATIENT PLACED ON [facility] BEDSIDE MONITOR. DENIES COMPLAINTS AT THIS TIME.
--- NOTE | 2018-04-29 18:05 | NUR ---
Patient in room MED 308. I have received report from Jacob and had the opportunity to ask questions and assume patient care.
--- NOTE | 2018-04-29 18:11 | NUR ---
Problems reprioritized. Patient report given, questions answered & plan of care reviewed with KWAN SERNA.
[2018-04-29] MEDS: magnesium Cl slow-release 64mg tablet PO SCH (20:00)
[2018-04-29] MEDS: potassium Cl 20 mEq SR tablet PO SCH (20:00)
--- NOTE | 2018-04-29 20:10 | NUR ---
Received call from MD SARMIENTO requesting the DC of metoprolol- accessed patients orders and found that the metoprolol was already discontinued this AM per JOI Piper. No new changes made at this time.
[2018-04-29] MEDS: insulin glargine (Lantus) pen - multi-dose SQ SCH (20:42)
[2018-04-30] VITALS (15 sets, daily range): BP systolic 107–147; BP diastolic 61–88
[2018-04-30] MEDS: HYDROcodone/acetaminophen 10/325mg tab PO PRN ×4 (02:02→22:10)
--- NOTE | 2018-04-30 03:00 | NUR ---
Called DR. Smiley concerning pt heart rhythm change from Sinus Rhythm to Atrial Fibrillation. Directed to start Amiodarone drip per protocol.
[2018-04-30] MEDS ORDERED: amiodarone 150mg/dext, iso-os 100 ML IV ONE (03:05)
[2018-04-30] MEDS: amiodarone/D5 360MG/200ML BAG 200 ML IV SCH ×4 (03:54→21:17)
[2018-04-30 05:25] LABS: BASOPHILS % (AUTO) 0 % (0-1); EOSINOPHILS % (AUTO) 0 % (0-6); HEMOGLOBIN 12.4 g/dl (14.0-17.9); LYMPHOCYTES % (AUTO) 4.7 % (21-51); MEAN CORPUSCULAR HEMOGLOBIN 31.8 PG (27.0-31.0); MEAN CORPUSCULAR HGB CONC 33.5 g/dL (33.0-36.5); MEAN CORPUSCULAR VOLUME 94.8 FL (78-98); MEAN PLATELET VOLUME 10.2 FL (7.4-10.4); MONOCYTES # (AUTO) 2.3 X10'3 (0-0.9); MONOCYTES % (AUTO) 11.4 % (2-12); NEUTROPHILS % (AUTO) 83.9 % (42-75); PLATELET COUNT 157 X10'3 (140-440); RED CELL DISTRIBUTION WIDTH 13.9 % (11.5-14.5); WHITE BLOOD COUNT 20.3 X10'3 (4.5-11.0)
[2018-04-30 05:33] LABS: ALBUMIN 3.2 G/DL (3.4-5.0); ANION GAP 10 (8-16); BLOOD UREA NITROGEN 30 MG/DL (7-18); CALCIUM 8.9 MG/DL (8.5-10.1); CHLORIDE 103 MMOL/L (99-107); CREATININE 1.11 MG/DL (0.60-1.10); GLUCOSE 118 MG/DL (70-104); MAGNESIUM 2.4 MG/DL (1.5-2.4); POTASSIUM 4.1 MMOL/L (3.5-5.1); SODIUM 139 MMOL/L (135-145); TOTAL CARBON DIOXIDE 25.9 MMOL/L (24-32); eGFR 65 ML/MIN
[2018-04-30 06:10] LABS: PLATELET ESTIMATE NORMAL; TOTAL CELLS COUNTED 100
--- NOTE | 2018-04-30 06:43 | NUR ---
Patient in room MED 307. I have received report from Chidi BOWENS and had the opportunity to ask questions and assume patient care.
[2018-04-30] MEDS: magnesium Cl slow-release 64mg tablet PO SCH ×2 (07:03→20:00)
[2018-04-30] MEDS: potassium Cl 20 mEq SR tablet PO SCH ×2 (07:03→20:00)
[2018-04-30] MEDS: atorvastatin 10mg tablet PO SCH (07:41)
[2018-04-30] MEDS: docusate sod 100mg capsule PO SCH ×2 (07:41→20:07)
[2018-04-30] MEDS: citalopram 20mg tablet PO SCH (07:41)
[2018-04-30] MEDS: pantoprazole 40mg Tablet.DR PO SCH (07:41)
[2018-04-30] MEDS: allopurinol 300 MG tablet PO SCH (07:41)
[2018-04-30] MEDS: aspirin 325mg tablet, delayed-release (Ecotrin) PO SCH (07:41)
[2018-04-30] MEDS: lactobacillus rhamnosus 10,000 MMU CELLS/CAPSULE PO SCH ×2 (07:41→20:07)
[2018-04-30] MEDS: losartan 50mg tablet PO SCH (07:41)
[2018-04-30] MEDS: K and/or MAG REPLACEMENT MC SCH (07:48)
[2018-04-30] MEDS: insulin Lispro (HumaLOG) vial - multi-dose SQ SCH (08:41)
--- NOTE | 2018-04-30 09:25 | NUR ---
CONVERTED AFIB TO SR
--- NOTE | 2018-04-30 10:30 | NUR ---
Dr Smiley at bedside, he stated to keep amiodarone drip running for now. He is okay with heart rate dipping to the 50s, but to notify him if sustains 40s, and would probably d/c drip then.
[2018-04-30] MEDS ORDERED: furosemide 40mg/4ml inj IV ONE (10:45)
--- NOTE | 2018-04-30 14:54 | NUR ---
Consult: Pt s/p CABG x3 seen at bedside given written and verbal nutrition and wound healing after cardiac surgery education. RD contact information provided. Pt currently on a NCS diet with documented PO intake 50-75% however pt reports low appetite and requests chicken salad sandwich for lunch the next couple of days, d/w dietary. Will continue to follow and monitor need for ONS. Addendum: 04/30/18 at [address] Amended: Links added.
--- NOTE | 2018-04-30 18:17 | NUR ---
Problems reprioritized. Patient report given, questions answered & plan of care reviewed with Chidi RN.
[2018-04-30] MEDS: insulin glargine (Lantus) pen - multi-dose SQ SCH (21:00)
[2018-05-01 03:00] VITALS: BP 139/73
[2018-05-01] MEDS: amiodarone/D5 360MG/200ML BAG 200 ML IV SCH ×2 (03:21→06:00)
[2018-05-01 05:18] LABS: ALBUMIN 3.1 G/DL (3.4-5.0); ANION GAP 10 (8-16); BLOOD UREA NITROGEN 28 MG/DL (7-18); BUN/CREATININE RATIO 23.5 (5.4-32.0); CALCIUM 8.9 MG/DL (8.5-10.1); CHLORIDE 101 MMOL/L (99-107); CREATININE 1.19 MG/DL (0.60-1.10); GLUCOSE 111 MG/DL (70-104); MAGNESIUM 2.2 MG/DL (1.5-2.4); POTASSIUM 3.7 MMOL/L (3.5-5.1); SODIUM 140 MMOL/L (135-145); TOTAL CARBON DIOXIDE 29.2 MMOL/L (24-32); eGFR 60 ML/MIN
[2018-05-01 05:21] LABS: BASOPHILS % (AUTO) 0.2 % (0-1); EOSINOPHILS % (AUTO) 0.1 % (0-6); HEMATOCRIT 39.1 % (42.0-52.0); HEMOGLOBIN 13.2 g/dl (14.0-17.9); LYMPHOCYTES # (AUTO) 1.4 X10'3 (1.1-4.8); LYMPHOCYTES % (AUTO) 12.1 % (21-51); MEAN CORPUSCULAR HEMOGLOBIN 31.8 PG (27.0-31.0); MEAN CORPUSCULAR HGB CONC 33.8 g/dL (33.0-36.5); MEAN PLATELET VOLUME 10.3 FL (7.4-10.4); MONOCYTES # (AUTO) 1.3 X10'3 (0-0.9); MONOCYTES % (AUTO) 11.3 % (2-12); NEUTROPHILS # (AUTO) 8.9 X10'3 (1.8-7.7); NEUTROPHILS % (AUTO) 76.3 % (42-75); PLATELET COUNT 181 X10'3 (140-440); RED BLOOD COUNT 4.16 X10'6 (4.70-6.10); RED CELL DISTRIBUTION WIDTH 14.2 % (11.5-14.5); WHITE BLOOD COUNT 11.7 X10'3 (4.5-11.0)
[2018-05-01 06:00] VITALS: BP 137/76
[2018-05-01] MEDS: magnesium Cl slow-release 64mg tablet PO SCH ×2 (07:25→20:00)
[2018-05-01] MEDS: pantoprazole 40mg Tablet.DR PO SCH (07:25)
[2018-05-01] MEDS: atorvastatin 20mg tablet PO SCH (07:25)
[2018-05-01] MEDS: docusate sod 100mg capsule PO SCH ×2 (07:25→20:07)
[2018-05-01] MEDS: aspirin 81mg tab.chew PO SCH (07:25)
[2018-05-01] MEDS: potassium Cl 20 mEq SR tablet PO SCH ×2 (07:25→20:07)
[2018-05-01] MEDS: citalopram 20mg tablet PO SCH (07:26)
[2018-05-01] MEDS: allopurinol 300 MG tablet PO SCH (07:26)
[2018-05-01] MEDS: lactobacillus rhamnosus 10,000 MMU CELLS/CAPSULE PO SCH ×2 (07:26→20:07)
[2018-05-01] MEDS: losartan 50mg tablet PO SCH (07:26)
[2018-05-01] MEDS: HYDROcodone/acetaminophen 10/325mg tab PO PRN ×3 (07:26→20:09)
[2018-05-01] MEDS: K and/or MAG REPLACEMENT MC SCH (07:30)
[2018-05-01] MEDS: amiodarone 200mg tablet PO SCH ×2 (10:13→20:07)
[2018-05-01 11:00] VITALS: BP 113/73
--- NOTE | 2018-05-01 14:49 | NUR ---
Initial: Pt s/p CABGx3 PO 50-75% meals agrees to chicken salads w/ lunches. LBM 04/30 first BM post-op. Will continue to monitor. Rec: 1. continue NCS diet 2. chicken salad sandwich w/ lunches 3. wt per rx Addendum: 05/01/18 at [address] Amended: Links added.
[2018-05-01 15:00] VITALS: BP 117/67
[2018-05-01 18:00] VITALS: BP 94/64
--- NOTE | 2018-05-01 18:14 | NUR ---
Problems reprioritized. Patient report given, questions answered & plan of care reviewed with Brant BOWENS.
[2018-05-01] MEDS ORDERED: amiodarone 200mg tablet PO SCH (20:00)
[2018-05-01] MEDS: insulin glargine (Lantus) pen - multi-dose SQ SCH (21:00)
[2018-05-01 22:00] VITALS: BP 133/71
[2018-05-02 02:00] VITALS: BP 126/69
--- NOTE | 2018-05-02 06:00 | NUR ---
Patient in room MED 316. I have received report from Brant BOWENS and had the opportunity to ask questions and assume patient care.
[2018-05-02 06:02] LABS: BASOPHILS % (AUTO) 0.3 % (0-1); EOSINOPHILS # (AUTO) 0.2 X10'3 (0-0.9); EOSINOPHILS % (AUTO) 1.4 % (0-6); HEMATOCRIT 39.2 % (42.0-52.0); HEMOGLOBIN 13.2 g/dl (14.0-17.9); LYMPHOCYTES # (AUTO) 1.2 X10'3 (1.1-4.8); LYMPHOCYTES % (AUTO) 10.1 % (21-51); MEAN CORPUSCULAR HEMOGLOBIN 31.7 PG (27.0-31.0); MEAN CORPUSCULAR HGB CONC 33.8 g/dL (33.0-36.5); MEAN CORPUSCULAR VOLUME 93.9 FL (78-98); MEAN PLATELET VOLUME 9.3 FL (7.4-10.4); MONOCYTES # (AUTO) 1.2 X10'3 (0-0.9); MONOCYTES % (AUTO) 10.1 % (2-12); NEUTROPHILS % (AUTO) 78.1 % (42-75); PLATELET COUNT 206 X10'3 (140-440); RED BLOOD COUNT 4.17 X10'6 (4.70-6.10); WHITE BLOOD COUNT 11.6 X10'3 (4.5-11.0)
[2018-05-02 06:21] LABS: ALBUMIN 2.9 G/DL (3.4-5.0); ANION GAP 9 (8-16); BLOOD UREA NITROGEN 27 MG/DL (7-18); BUN/CREATININE RATIO 23.3 (5.4-32.0); CALCIUM 8.9 MG/DL (8.5-10.1); CHLORIDE 103 MMOL/L (99-107); CREATININE 1.16 MG/DL (0.60-1.10); GLUCOSE 113 MG/DL (70-104); MAGNESIUM 2.3 MG/DL (1.5-2.4); POTASSIUM 3.9 MMOL/L (3.5-5.1); SODIUM 140 MMOL/L (135-145); TOTAL CARBON DIOXIDE 28.2 MMOL/L (24-32); eGFR 62 ML/MIN
--- NOTE | 2018-05-02 06:31 | NUR ---
Problems reprioritized. Patient report given, questions answered & plan of care reviewed with Jacob BOWENS.
[2018-05-02 07:00] VITALS: BP 140/76
[2018-05-02] MEDS: docusate sod 100mg capsule PO SCH ×2 (07:08→20:35)
[2018-05-02] MEDS: citalopram 20mg tablet PO SCH (07:08)
[2018-05-02] MEDS: pantoprazole 40mg Tablet.DR PO SCH (07:08)
[2018-05-02] MEDS: losartan 50mg tablet PO SCH (07:08)
[2018-05-02] MEDS: atorvastatin 20mg tablet PO SCH (07:08)
[2018-05-02] MEDS: amiodarone 200mg tablet PO SCH ×2 (07:09→20:36)
[2018-05-02] MEDS: potassium Cl 20 mEq SR tablet PO SCH ×2 (07:09→20:36)
[2018-05-02] MEDS: HYDROcodone/acetaminophen 10/325mg tab PO PRN ×3 (07:09→21:43)
[2018-05-02] MEDS: aspirin 81mg tab.chew PO SCH (07:09)
[2018-05-02] MEDS: allopurinol 300 MG tablet PO SCH (07:09)
[2018-05-02] MEDS ORDERED: amiodarone 150mg/dext, iso-os 100 ML IV ONE (07:10)
[2018-05-02] MEDS: K and/or MAG REPLACEMENT MC SCH (07:56)
[2018-05-02] MEDS: lactobacillus rhamnosus 10,000 MMU CELLS/CAPSULE PO SCH ×2 (07:56→20:36)
[2018-05-02] MEDS: magnesium Cl slow-release 64mg tablet PO SCH ×2 (07:57→20:00)
[2018-05-02 10:57] VITALS: BP 91/52
[2018-05-02 15:00] VITALS: BP 113/53
[2018-05-02 18:00] VITALS: BP 137/68
--- NOTE | 2018-05-02 18:00 | NUR ---
Patient in room MED 308. I have received report from KWAN James and had the opportunity to ask questions and assume patient care.
--- NOTE | 2018-05-02 18:15 | NUR ---
Problems reprioritized. Patient report given, questions answered & plan of care reviewed with Angeli BOWENS.
[2018-05-02] MEDS: insulin glargine (Lantus) pen - multi-dose SQ SCH (19:01)
[2018-05-02 22:00] VITALS: BP 143/60
[2018-05-03 02:00] VITALS: BP 131/60
[2018-05-03 06:00] VITALS: BP 127/61
--- NOTE | 2018-05-03 06:00 | NUR ---
Problems reprioritized. Patient report given, questions answered & plan of care reviewed with Art, RN.
[2018-05-03 06:09] LABS: ALBUMIN 2.5 G/DL (3.4-5.0); ANION GAP 8 (8-16); BLOOD UREA NITROGEN 29 MG/DL (7-18); CALCIUM 8.4 MG/DL (8.5-10.1); CHLORIDE 102 MMOL/L (99-107); CREATININE 1.53 MG/DL (0.60-1.10); GLUCOSE 113 MG/DL (70-104); MAGNESIUM 2.2 MG/DL (1.5-2.4); POTASSIUM 4.1 MMOL/L (3.5-5.1); SODIUM 138 MMOL/L (135-145); TOTAL CARBON DIOXIDE 27.6 MMOL/L (24-32); eGFR 45 ML/MIN
[2018-05-03] MEDS: pantoprazole 40mg Tablet.DR PO SCH (07:47)
[2018-05-03] MEDS: magnesium Cl slow-release 64mg tablet PO SCH (07:47)
[2018-05-03] MEDS: amiodarone 200mg tablet PO SCH (07:49)
[2018-05-03] MEDS: potassium Cl 20 mEq SR tablet PO SCH (07:49)
[2018-05-03] MEDS: aspirin 81mg tab.chew PO SCH (07:49)
[2018-05-03] MEDS: allopurinol 300 MG tablet PO SCH (07:49)
[2018-05-03] MEDS: losartan 50mg tablet PO SCH (07:49)
[2018-05-03] MEDS: citalopram 20mg tablet PO SCH (07:50)
[2018-05-03] MEDS: atorvastatin 20mg tablet PO SCH (07:50)
[2018-05-03] MEDS: docusate sod 100mg capsule PO SCH (07:50)
[2018-05-03] MEDS: lactobacillus rhamnosus 10,000 MMU CELLS/CAPSULE PO SCH (07:50)
[2018-05-03] MEDS: K and/or MAG REPLACEMENT MC SCH (08:00)
[2018-05-03] MEDS ORDERED: COL100C PO (09:04)
[2018-05-03] MEDS ORDERED: LOSA50TA64 PO (09:04)
[2018-05-03] MEDS ORDERED: AMIO200T40 PO (09:04)
[2018-05-03] MEDS ORDERED: ASPI-1265 PO (09:04)
[2018-05-03] MEDS ORDERED: HYDR-3972 PO (09:04)
[2018-05-03] MEDS: HYDROcodone/acetaminophen 10/325mg tab PO PRN (11:20)
[2018-05-03] MEDS ORDERED: amiodarone 200mg tablet PO SCH (13:00)
--- NOTE | 2018-05-03 13:43 | NUR ---
Pt IV removed, tip intact. Pt given DC instruction given to pt. Pt escorted to POV in WC with volunteer.
== END 2018-05-03 13:35 | disposition home health service (06) | DRG 235 ==
LOC: PAS IN 08:48 → EDSTATUS 13:15 → CICU 2S 16:23 → MED 3N 04-29 16:00
PROVIDERS: ADMIT Thoracic Surgery (Cardiothoracic Vascular Surgery); ATTEND Thoracic Surgery (Cardiothoracic Vascular Surgery)
PROC: 02100Z9 Bypass Coronary Artery, One Artery from Left Internal Mammary, Open Approach (ICD-10-PCS; 2018-04-27)
PROC: 06BQ4ZZ Excision of Left Saphenous Vein, Percutaneous Endoscopic Approach (ICD-10-PCS; 2018-04-27)
PROC: B246ZZ4 Ultrasonography of Right and Left Heart, Transesophageal (ICD-10-PCS; 2018-04-27)
PROC: 5A1221Z Performance of Cardiac Output, Continuous (ICD-10-PCS; 2018-04-27)
PROC: 02HV33Z Insertion of Infusion Device into Superior Vena Cava, Percutaneous Approach (ICD-10-PCS; 2018-04-27)
PROC: 021109W Bypass Coronary Artery, Two Arteries from Aorta with Autologous Venous Tissue, Open Approach (ICD-10-PCS; principal; 2018-04-27 12:21)
PROC: 5A09357 Assistance with Respiratory Ventilation, Less than 24 Consecutive Hours, Continuous Positive Airway Pressure (ICD-10-PCS; 2018-04-28)
PROC: 5A09357 Assistance with Respiratory Ventilation, Less than 24 Consecutive Hours, Continuous Positive Airway Pressure (ICD-10-PCS; 2018-04-29)
DX: I25.10 Atherosclerotic heart disease of native coronary artery without angina pectoris (principal); I50.33 Acute on chronic diastolic (congestive) heart failure; Z68.41 Body mass index [BMI] 40.0-44.9, adult; E66.01 Morbid (severe) obesity due to excess calories; E78.5 Hyperlipidemia, unspecified; I11.0 Hypertensive heart disease with heart failure; I48.91 Unspecified atrial fibrillation; M10.9 Gout, unspecified; I49.5 Sick sinus syndrome; G47.30 Sleep apnea, unspecified; Z90.49 Acquired absence of other specified parts of digestive tract
CPT/HCPCS: 0232T; 93312; 93325; 36415; 36600; 71045; 71046; 80048; 80053; 81003; 82330; 82435; 82803; 82947; 82948; 83036; 83735; 84100; 84132; 84295; 85018; 85025; 85347; 85384; 85610; 85730; 86885; 86900; 86901; 86920; 87070; 93005; 93880; 93971; 94002; 94010; 94667; 94668; 97110; 97116; 97161; 97530; A6255; A6258; A6402; A6446; A6449; A7000; A7048; C1751; C9113; G0378; J0282; J0690; J1265; J1644; J1815; J1940; J2001; J2060; J2150; J2250; J2270; J2370; J2440; J2704; J3370; J3475; J3480; J3490; J7030; J7060; J7120; P9047